=== PATIENT | female | born 1975 | race Caucasian/White ===

== ENCOUNTER 2016-10-19 12:43 | Emergency (ER) | payer BC ==
[~2016-10-19] VITALS: Ht 175.3 cm; Wt 113.6 kg
[~2016-10-19 12:43] MED LIST: ATIVAN 1MG T1 MG/TAB PO; CEFTIN250 M1 PO; FLEXERIL10 MG PO; FLOMAX 0.40.4 MG/CAP PO; IBUPROFEN800 MG PO; NO HOME MEDICATIONS; NORCO 325 MG-51 TAB PO; NORCO 325 MG-7.1 TAB PO; PERCOCET 325 MG1 TA2 PO; PYRIDIATE200 MG PO
[2016-10-19 12:47] VITALS: PULSE 92; TEMP 98.4
[2016-10-19] MEDS ORDERED: XANAX 0.5MG0.5 MG PO (12:52)
[2016-10-19 14:08] LABS: BASO # 0.1 (0.0-0.2); BASO % 0.6 % (0.0-2.0); EOS # 0.2 (0.0-0.7); GRAN # 5.3 (1.4-6.5); GRAN % 66.6 % (42.2-75.2); HEMATOCRIT 43.8 % (37.0-47.0); HEMOGLOBIN 14.9 g/dl (12.5-16.0); LYMPH # 1.9 (1.2-3.4); LYMPH % 23.1 % (20.0-51.0); MEAN CELL VOLUME 96 fl (80.0-100.0); MEAN CORPUSCULAR HEMOGLOBIN 33 pg (27.0-31.0); MEAN CORPUSCULAR HGB CONC 34 g/dl (33.0-37.0); MEAN PLATELET VOLUME 9.7 fl (7.4-10.4); MONO # 0.6 (0.1-0.6); MONO % 7.6 % (1.7-9.3); PLATELET COUNT 226 K/mm3 (130-400); RED BLOOD COUNT 4.58 M/mm3 (4.10-5.30)
[2016-10-19 14:24] LABS: ALBUMIN 4.3 gm/dL (3.5-5.0); BILIRUBIN,TOTAL 0.8 mg/dL (0.0-1.0); C-REACTIVE PROTEIN 0.9 mg/dL (0.0-0.9); CALCIUM 9.2 mg/dL (8.4-10.2); CREATININE, serum 0.63 mg/dL (0.52-1.25); TOTAL PROTEIN 7.5 gm/dL (6.4-8.2)
[2016-10-19 14:32] LABS: ERYTHROCYTE SEDIMENTATION RATE 7 mm/hr (0-20)
[2016-10-19] MEDS ORDERED: AMOXICILLIN 8751 TAB PO (15:43)
[2016-10-19 15:51] VITALS: BP 131/90
== END 2016-10-19 15:53 | disposition home or self-care (01) ==
LOC: COL.ER 12:43
PROVIDERS: Emergency Medicine
DX: R59.0 Localized enlarged lymph nodes (principal); M54.2 Cervicalgia; F41.9 Anxiety disorder, unspecified

== ENCOUNTER 2022-03-10 06:42 | Emergency (ER) | payer BC ==
[~2022-03-10] VITALS: Ht 175.3 cm; Wt 97.7 kg
[~2022-03-10 06:42] MED LIST changes: +AMOXICILLIN 8751 TAB PO; +XANAX 0.5MG0.5 MG PO
[2022-03-10 06:51] VITALS: TEMP 97.1
[2022-03-10] MEDS ORDERED: FLEXERIL 1010 MG/TAB PO (08:07)
[2022-03-10 08:23] VITALS: BP 129/86; PULSE 66
[2022-03-11] MEDS ORDERED: ZOFRAN ODT4 MG PO (17:06)
[2022-03-11] MEDS ORDERED: TORADOL 10MG TA10 MG PO (17:06)
== END 2022-03-10 08:23 | disposition home or self-care (01) ==
LOC: COL.ER 06:42
DX: R07.81 Pleurodynia (principal); Z28.310 Unvaccinated for COVID-19; W10.8XXA Fall (on) (from) other stairs and steps, initial encounter; Y93.01 Activity, walking, marching and hiking
CPT/HCPCS: J1885; J2360

== ENCOUNTER 2022-03-11 15:24 | Emergency (ER) | payer BC ==
[~2022-03-11] VITALS: Ht 175.3 cm; Wt 98.6 kg
[~2022-03-11 15:24] MED LIST changes: +FLEXERIL 1010 MG/TAB PO
[2022-03-11 15:29] VITALS: TEMP 97.8
[2022-03-11 16:07] LABS: COLLECTION METHOD CLEAN CATCH
[2022-03-11 16:10] LABS: BASO # 0.1 K/mm3 (0.0-0.2); BASO % 0.8 % (0.0-2.0); EOS # 0.3 K/mm3 (0.0-0.7); EOS % 2.8 % (0.0-4.0); GRAN % 56.9 % (42.2-75.2); HEMATOCRIT 41.7 % (37.0-47.0); HEMOGLOBIN 14.3 g/dl (12.5-16.0); LYMPH # 2.9 K/mm3 (1.2-3.4); MEAN CELL VOLUME 95 fl (80.0-100.0); MEAN CORPUSCULAR HEMOGLOBIN 33 pg (27-31); MEAN CORPUSCULAR HGB CONC 34 g/dl (33.0-37.0); MEAN PLATELET VOLUME 10.2 fl (7.4-10.4); MONO # 0.6 K/mm3 (0.1-0.6); MONO % 6.3 % (1.7-9.3); PLATELET COUNT 195 K/mm3 (130-400); RED BLOOD COUNT 4.38 M/mm3 (4.10-5.30); REDCELL DISTRIBUTION WIDTH-CV 11.7 % (11.5-14.5)
[2022-03-11 16:17] LABS: PH 6.5 (5.0-8.5); URINE APPEARANCE Cloudy (CLEAR/HAZY); URINE BLOOD 3+ (NEGATIVE); URINE COLOR OTHER (YELLOW); URINE GLUCOSE Negative (NEGATIVE); URINE KETONE TRACE (NEGATIVE); URINE NITRATE Negative (NEGATIVE); URINE PROTEIN(semi-quant) TRACE (NEGATIVE); URINE UROBILINOGEN 0.2 E.U/dL (0.2-1.0)
[2022-03-11 16:25] LABS: SQUAMOUS EPITHELIAL 0-2 /hpf (0-10); URINE BACTERIA Rare /hpf (NONE SEEN); URINE RBC >50 /hpf (0-2)
[2022-03-11 16:28] LABS: ALBUMIN 3.8 gm/dL (3.5-5.0); BILIRUBIN,TOTAL 0.4 mg/dL (0.2-1.2); CALCIUM 9.3 mg/dL (8.4-10.2); CREATININE, serum 0.8 mg/dL (0.57-1.11); POTASSIUM 4.1 mmol/L (3.5-4.5); TOTAL PROTEIN 7.2 gm/dL (6.2-8.1)
[2022-03-11] MEDS ORDERED: ZOFRAN ODT4 MG PO (17:06)
[2022-03-11] MEDS ORDERED: TORADOL 10MG TA10 MG PO (17:06)
[2022-03-11 17:40] VITALS: BP 165/72; PULSE 83
== END 2022-03-11 17:40 | disposition home or self-care (01) ==
LOC: COL.ER 15:24
PROVIDERS: Emergency Medicine
DX: N13.2 Hydronephrosis with renal and ureteral calculous obstruction (principal); Z32.02 Encounter for pregnancy test, result negative; Z88.5 Allergy status to narcotic agent; Z28.310 Unvaccinated for COVID-19; Z87.442 Personal history of urinary calculi
CPT/HCPCS: J1885; J7030; Q9967